=== PATIENT | female | born 1955 | race Caucasian/White ===

== ENCOUNTER 2018-03-11 19:14 | Emergency (ER) | payer OTHER | END 2018-03-12 | disposition home or self-care (01) | LOC: FTE 03-12 | DX: T16.2XXA Foreign body in left ear, initial encounter (principal); H61.22 Impacted cerumen, left ear; X58.XXXA Exposure to other specified factors, initial encounter; Y92.9 Unspecified place or not applicable | CPT/HCPCS: 69209; 99283-25 ==